=== PATIENT | male | born 1990 | race African-American/Black ===

== ENCOUNTER 2024-07-07 05:41 | Emergency (ER) | payer OTHER, SELFPAY ==
[2024-07-07 05:39] VITALS: BP 185/105; PULSE 95; RESP 15; TEMP 37.1; O2SAT 97
--- NOTE | 2024-07-07 05:44 | ED.GENADULT ---
HPI - General Adult General Chief complaint: Unspecified Stated complaint: unable to sleep x 3d; sore throat Time Seen by Provider: 07/07/24 05:44 History of Present Illness HPI narrative: 33-year-old male with a past medical history including hypertension and obstructive sleep apnea. Patient presents to the emergency department with complaint of sore throat and feeling like he is having difficulties going to sleep or he feels like he is gasping for breath in the middle the night, waking up startled and rolled and not getting a good night's sleep. He has had a physical recently and his family physician told him that he might do CPAP for his obstructive sleep apnea. Patient denies any symptoms at this time aside from a sore throat and feels like he got sick from a family friend that was sick at home. Denies any fever chills shortness of breath, chest pain, nausea, vomiting. Was otherwise in his normal state of health. Related Data Allergies Allergy/AdvReac Type Severity Reaction Status Date / Time No Known Allergies Allergy Verified 07/07/24 05:51 Review of Systems Review of Systems: As reviewed above in HPI Exam Narrative: GENERAL: Morbidly obese but not any distress HEAD: [Normocephalic, atraumatic.] EYES: [PERRLA and EOMI.] ENT: Nares clear, no rhinorrhea or epistaxis. Mucous membranes moist. Posterior oropharynx has some tonsillar edema but no exudates or posterior pharyngeal erythema. NECK: Supple. CHEST: [Clear to auscultation. No respiratory distress.] HEART: [Regular rate and rhythm]. No murmur heard. [Normal peripheral pulses.] ABDOMEN: [Soft, nondistended], [nontender], [No rigidity or guarding] EXTREMITIES: Normal range of motion. [No edema.] SKIN: Warm, dry, no rash. NEURO: [No focal deficits]. Alert and oriented [x3.] PSYCH: [Normal mood and affect.] Course Vital Signs Vital signs: Vital Signs Temperature 37.1 C 07/07/24 05:39 Pulse Rate 95 07/07/24 05:39 Respiratory Rate 15 07/07/24 05:39 Blood Pressure 185/105 H 07/07/24 05:39 Pulse Oximetry 97 07/07/24 05:39 Oxygen Delivery Room Air 07/07/24 05:39 Temperature 37.1 C 07/07/24 05:39 Pulse Rate 88 07/07/24 05:49 Respiratory Rate 15 07/07/24 05:39 Blood Pressure 185/105 H 07/07/24 05:39 Pulse Oximetry 97 07/07/24 05:39 Oxygen Delivery Room Air 07/07/24 05:39 Medical Decision Making MDM Narrative Medical decision making narrative: 33-year-old male with a history of obstructive sleep apnea hypertension presenting to the emergency depart with a sore throat and feeling like he is gasping for breath in the middle night when he tries to sleep. He has been getting poor night's rest and his noticed that he snores loudly and then becomes apneic prior to waking up startled. His body habitus and physical exam were consistent with morbid obesity likely causing obstructive sleep apnea and symptomatology but he has also had some sick contacts and some tonsillar enlargement without any exudates. Strep swabs and COVID swabs were obtained and he was instructed on management for sleep apnea and CPAP machine which is family physician is already referred him for. He has not acquired 1 at this time. Patient has no signs of an emergency at this time will be discharged home upon completion of his ER visit. Medical Records Medical records reviewed: Yes I reviewed the external patient's medical records. Vital Signs Vital Signs: Vital Signs Temperature 37.1 C 07/07/24 05:39 Pulse Rate 95 07/07/24 05:39 Respiratory Rate 15 07/07/24 05:39 Blood Pressure 185/105 H 07/07/24 05:39 Pulse Oximetry 97 07/07/24 05:39 Oxygen Delivery Room Air 07/07/24 05:39 Temperature 37.1 C 07/07/24 05:39 Pulse Rate 88 07/07/24 05:49 Respiratory Rate 15 07/07/24 05:39 Blood Pressure 185/105 H 07/07/24 05:39 Pulse Oximetry 97 07/07/24 05:39 Oxygen Delivery Room Air 07/07/24 05:39 Lab Data Lab results reviewed: Yes I reviewed the patient's lab results. Labs: Lab Results 07/07/24 Range/Units 05:51 Influenza A (RT-PCR) Pending Influenza B (RT-PCR) Pending RSV (RT-PCR) Pending SARS-CoV-2 RNA (RT-PCR) Pending Group A Strep (PCR) Detected A (Negative) Discharge Plan Discharge Clinical Impression: Obstructive sleep apnea, Acute sore throat, Strep throat Patient Disposition: Home Condition: Stable Instructions: Antibiotic Form Additional Instructions: You have strep throat and we will treat this with antibiotics. Your symptoms are consistent with obstructive sleep apnea likely secondary to obesity. He will need a CPAP machine to help with the symptoms of this. Follow-up with your primary care provider about getting this. Return with any emergencies. Patient Language: Argentine Prescriptions: New amoxicillin 500 mg capsule 500 mg PO Q12H Qty: 20 0RF Time of Disposition: 06:28
[2024-07-07 05:49] VITALS: PULSE 88
[2024-07-07 06:23] LABS: Strep Group A RT-PCR DETECTED (Negative)
[2024-07-07 06:38] LABS: Influenza A QL RT-PCR Negative (Negative); Influenza B QL RT-PCR Negative (Negative); RSV RNA, RT-PCR Negative (Negative); SARS-CoV-2 RNA PCR Negative (Negative)
[2024-07-07] MEDS: PENICILLIN V POTASSIUM 250 MG TABLET 500 MG PO (06:41)
== END 2024-07-07 06:45 | disposition home or self-care (01) ==
LOC: ANHED 06:49
PROVIDERS: Emergency Provider Student in an Organized Health Care Education/Training Program
DX: G47.33 Obstructive sleep apnea (adult) (pediatric) (principal); J02.0 Streptococcal pharyngitis; Z20.822 Contact with and (suspected) exposure to COVID-19; E66.01 Morbid (severe) obesity due to excess calories; Z68.42 Body mass index [BMI] 45.0-49.9, adult
CPT/HCPCS: 87637; 87651; 99283; A9270

== ENCOUNTER 2024-08-23 22:59 | Emergency (ER) | payer OTHER, SELFPAY ==
--- NOTE | ~2024-08-23 | CT_ITS ---
Non-contrast CT scan of the Abdomen and Pelvis Clinical indication: Pain, umbilical hernia Technique: 2.5 mm axial scans were obtained through the abdomen and pelvis without intravenous or or al contrast. Dose reduction technique was used on this scan by utilizing automated exposure control a nd iterative reconstruction technique. The dose-length product (DLP) was 2007.87 mGy-cm. Findings: Images through the lung bases reveal no abnormalities. There is no evidence of renal or ureteral calculi. The kidneys and the ureters are nondilated. The liver, spleen, pancreas, gallbladder, and adrenals appear normal. There is no aortic aneurysm. There is no evidence of bowel obstruction. Small fat-containing of focal hernia present with possible minimal inflammatory change in the hernia. Images through the pelvis were performed. There is no evidence of ascites or lymphadenopathy. Urinary bladder unremarkable. No pelvic mass seen. Impression: Small fat-containing umbilical hernia with possible minimal inflammatory change in the hernia. Correl ate for incarceration/strangulation. Reviewed, dictated and finalized at [facility]. Impression: Small fat-containing umbilical hernia with possible minimal inflammatory change in the hernia. Correlate for incarceration/strangulation.
[2024-08-23 23:01] VITALS: BP 174/113; PULSE 91; RESP 18; TEMP 36.8; O2SAT 98
[2024-08-24 01:59] VITALS: BP 175/89; PULSE 87; RESP 18; O2SAT 100
[2024-08-24 02:03] LABS: Hematocrit 50.7 % (42.0-52.0); Hemoglobin 16.1 g/dL (14.0-18.0); Immature Granulocyte Percent A 0.4 % (0-0.5); Lymphocytes Absolute Auto 2.80 K/mm3 (0.9-3.2); Mean Corpuscular HGB Conc 31.8 g/dl (32-36); Mean Corpuscular Hemoglobin 26.8 pg (26-34); Mean Corpuscular Volume 84.5 fl (80-100); Nucleated Red Blood Cells Absolute Auto 0.000 K/mm3 (0.0-0.012); Nucleated Red Blood Cells Perc 0.0 % (0.0-0.2); Platelet Count Result 247 k/mm3 (150-375); Red Blood Count 6.00 M/mm3 (4.6-6.20); White Blood Count 7.1 K/mm3 (4.5-10.0)
--- NOTE | 2024-08-24 02:26 | ED.ABDPAIN ---
HPI - Abdominal Pain General Chief Complaint: Abdominal Pain Stated Complaint: hernia in belly button Time Seen by Provider: 08/24/24 02:04 History of Present Illness HPI narrative: 34-year-old male with history of obesity presenting to the emergency depart with umbilical pain in the umbilical hernia intermittent for last 4 days. States that he occasionally gets pain in this area where at projects outward and he is not able to reduce it but it spontaneous reduces on its own occasionally. Has been going on intermittently for several months but worsening over last few days. No nausea, vomiting, constipation. Not any acute distress and his urged him to come to the hospital for evaluation. He is tolerating oral intake without any difficulty, no fever, chills, back pain, chest pain. No current abdominal pain and no current protruding hernia. Related Data Allergies Allergy/AdvReac Type Severity Reaction Status Date / Time No Known Allergies Allergy Verified 08/23/24 23:01 Review of Systems Review of Systems: As reviewed above in HPI Exam Narrative: GENERAL: Morbidly obese but not any acute distress. HEAD: [Normocephalic, atraumatic.] EYES: [PERRLA and EOMI.] ENT: Nares clear, no rhinorrhea or epistaxis. Mucous membranes moist. NECK: Supple. CHEST: [Clear to auscultation. No respiratory distress.] HEART: [Regular rate and rhythm]. No murmur heard. [Normal peripheral pulses.] ABDOMEN: Soft nondistended, nontender., no rigidity or guarding. Umbilical hernia is easily reducible with palpation, hernia defect in the abdominal wall is palpable without any overlying skin changes EXTREMITIES: Normal range of motion. [No edema.] SKIN: Warm, dry, no rash. NEURO: [No focal deficits]. Alert and oriented [x3.] PSYCH: [Normal mood and affect.] Course Vital Signs Vital signs: Vital Signs Temperature 36.8 C 08/23/24 23:01 Pulse Rate 91 08/23/24 23:01 Respiratory Rate 18 08/23/24 23:01 Blood Pressure 174/113 H 08/23/24 23:01 Pulse Oximetry 98 08/23/24 23:01 Oxygen Delivery Room Air 08/23/24 23:01 Temperature 36.8 C 08/23/24 23:01 Pulse Rate 87 08/24/24 02:56 Respiratory Rate 27 H 08/24/24 02:56 Blood Pressure 163/101 H 08/24/24 02:56 Pulse Oximetry 95 08/24/24 02:56 Oxygen Delivery Room Air 08/24/24 01:59 MDM - Abdominal Pain MDM Narrative Medical decision making narrative: 34-year-old male with history of obesity presenting to the emergency depart with umbilical pain in the umbilical hernia intermittent for last 4 days. States that he occasionally gets pain in this area where at projects outward and he is not able to reduce it but it spontaneous reduces on its own occasionally. Has been going on intermittently for several months but worsening over last few days. No nausea, vomiting, constipation. Not any acute distress and his urged him to come to the hospital for evaluation. He is tolerating oral intake without any difficulty, no fever, chills, back pain, chest pain. No current abdominal pain and no current protruding hernia. Exam of the abdominal region shows umbilical hernia which is is reducible with palpation and pressure, hernia defect in the abdominal wall is palpable without any overlying skin changes. Patient is mildly hypertensive but no signs or symptoms of hypertensive urgency or emergency at this time. Other vital signs are all normal. Given patient's intermittent pain for last few weeks as well as exam findings of hernia we discussed treatment evaluation options and patient would like to undergo imaging studies for further evaluation of the hernia contents. Laboratory studies and a CT scan without contrast were obtained. Given patient's easily reducible hernia without any signs of obstruction or clinical concern from his historical elements I believe he can be discharged home upon completion of workup with a general surgery referral and he was amenable to this plan. Workup underway. CT scan shows umbilical hernia without any bowel loops. Patient has any exam finding consistent with reducible umbilical hernia without strangulation or incarceration. He will follow-up with a general surgeon which we will refer him to. Patient is safe for discharge home at this time. Medical Records Attestation: I reviewed the patient's medical records. Lab Data Attestation: I reviewed the patient's lab results. 08/24/24 01:56 08/24/24 01:56 Labs: Lab Results 08/24/24 08/24/24 Range/Units 01:56 02:21 WBC 7.1 (4.5-10.0) K/mm3 RBC 6.00 (4.6-6.20) M/mm3 Hgb 16.1 (14.0-18.0) g/dL Hct 50.7 (42.0-52.0) % MCV 84.5 (80-100) fl MCH 26.8 (26-34) pg MCHC 31.8 L (32-36) g/dl RDW 15.2 H (11.5-14.5) % Plt Count 247 (150-375) k/mm3 MPV 10.1 (7.4-10.4) fl Immature Gran % (Auto) 0.4 (0-0.5) % Neut % (Auto) 47.3 (45.5-73.1) % Lymph % (Auto) 39.5 (18.3-44.2) % [place] % (Auto) 7.8 (2.6-8.5) % Eos % (Auto) 4.2 (0-4.4) % Baso % (Auto) 0.8 (0.2-1.2) % Lymph # (Auto) 2.80 (0.9-3.2) K/mm3 [place] # (Auto) 0.6 (0.1-0.6) K/mm3 Eos # (Auto) 0.3 (0-0.3) K/mm3 Baso # (Auto) 0.1 (0.0-0.1) K/mm3 Abs Immat Gran (auto) 0.03 (0.00-0.031) K/mm3 Absolute Neuts (auto) 3.3 (1.3-6.7) K/mm3 Absolute Nucleated RBC 0.000 (0.0-0.012) K/mm3 Nucleated RBC % 0.0 (0.0-0.2) % Sodium 140 (137-145) mmol/L Potassium 4.0 (3.4-5.0) mmol/L Chloride 105 (98-107) mmol/L Carbon Dioxide 27 (22-30) mmol/L Anion Gap 8 (4-12) mmol/L BUN 19 (9-20) mg/dL Creatinine 1.23 (0.7-1.3) mg/dL Estim Creat Clear Calc 130 ml/min Estimated GFR > 60 (59 - ) Glucose 155 H (65-110) mg/dL Calcium 9.2 (8.4-10.2) mg/dL Total Bilirubin 0.3 (0.2-1.3) mg/dL AST 29 (17-59) U/L ALT 28 (6-50) U/L Alkaline Phosphatase 72 (38-126) U/L Total Protein 7.8 (6.3-8.2) g/dL Albumin 4.0 (3.5-5.1) g/dL Lipase 383 H (23-300) U/L Urine Color Yellow (Yellow) Urine Appearance Clear (Clear) Urine pH 5.5 (5.0-9.0) Ur Specific [place] 1.032 (1.001-1.035) Urine Protein 2+ H (Negative) mg/dL Urine Glucose (UA) Negative (Negative) mg/dL Urine Ketones Trace H (Negative) mg/dL Ur Blood (Man) Negative (Negative) Urine Nitrate Negative (Negative) Urine Bilirubin Negative (Negative) Urine Urobilinogen 0.2 (<2.0) mg/dL Leukocyte Esterase Rfl 2+ H (Negative) TOM/UL Urine RBC 0-2 (0-2) /hpf Urine WBC 51-100 H (0-3) /hpf Ur Squamous Epith Cells None seen (Few) /hpf Urine Bacteria None seen /hpf Urine Casts 0-2 Imaging Data Attestation: I personally reviewed and interpreted this imaging study as follows: My impression: Impressions Abdomen/Pelvis CT 08/24/24 05:36 Impression: Small fat-containing umbilical hernia with possible minimal inflammatory change in the hernia. Correlate for incarceration/strangulation. Radiologist's impression: ITS Impressions Abdomen/Pelvis CT 08/24/24 05:36 Impression: Small fat-containing umbilical hernia with possible minimal inflammatory change in the hernia. Correlate for incarceration/strangulation. Discharge Plan Discharge Clinical Impression: Reducible umbilical hernia Patient Disposition: Home Condition: Stable Instructions: Antibiotic Form, Umbilical Hernia (ED), Umbilical Hernia Repair (DC) Additional Instructions: Your CT scan shows a small fat containing umbilical hernia which is easily reducible at bedside without any signs of strangulation or incarceration. This can be treated with General surgery on outpatient basis which will refer you to. Your laboratory studies are reassuring and no signs of urgent or emergent concerns today. Follow-up with surgery and return with any concerns such as intractable pain, inability to defecate, nauseousness and persistent vomiting or any other issues. Patient Language: Mohawk Prescriptions: No Action amoxicillin 500 mg capsule 500 mg PO Q12H Qty: 20 0RF Follow-up/Referrals: Jesus Manuel Dye MD [Physician] - 1 Week (Umbilical hernia) PHYSICIAN,[employer] [Primary Care Provider] - Time of Disposition: 05:45
[2024-08-24 02:27] LABS: Alanine Aminotransferase 28 U/L (6-50); Albumin Level 4.0 g/dL (3.5-5.1); Alkaline Phosphatase 72 U/L (38-126); Anion Gap 8 mmol/L (4-12); Aspartate Amino Transferase 29 U/L (17-59); Bilirubin,Total 0.3 mg/dL (0.2-1.3); Blood Urea Nitrogen 19 mg/dL (9-20); Calcium 9.2 mg/dL (8.4-10.2); Carbon Dioxide 27 mmol/L (22-30); Chloride 105 mmol/L (98-107); Estimated CRCL calculation 130 ml/min; Estimated Glomerular Filt Rate > 60; Glucose 155 mg/dL (65-110); Lipase 383 U/L (23-300); Potassium 4.0 mmol/L (3.4-5.0); Sodium 140 mmol/L (137-145); Total Protein 7.8 g/dL (6.3-8.2)
[2024-08-24 02:31] LABS: Add Urine Microscopic? YES; Appearance Urine Clear (Clear); Glucose Urine UA Negative (Negative); Leukocyte Esterase Ur 2+ LEU/UL (Negative); Nitrate Urine Negative (Negative); Non Pathogenic Casts 0-2; Specific Grav Ur 1.032 (1.001-1.035)
[2024-08-24 02:56] VITALS: BP 163/101; PULSE 87; RESP 27; O2SAT 95
[2024-08-24 05:53] VITALS: BP 157/92; PULSE 85; RESP 23; O2SAT 99
== END 2024-08-24 05:54 | disposition home or self-care (01) ==
PROVIDERS: Emergency Provider Student in an Organized Health Care Education/Training Program
DX: K42.9 Umbilical hernia without obstruction or gangrene (principal)
CPT/HCPCS: 36415; 74176; 80053; 81001; 83690; 85025; 87086; 99284

== ENCOUNTER 2024-10-25 07:58 | Outpatient (CLI) | payer OTHER, SELFPAY ==
--- NOTE | 2024-11-16 11:07 | WPDHOMESLEEP ---
Sleep Study - Home Unattended Date of Study: 10/25/24 Ordering Provider: Claire Marquez, FUNERAL SERVICE MANAGER Interpreting Provider: Rianna Brewer MD Home Sleep Study Type: Watch PAT Height: 1.89 m Weight: 169.19 kg Body Mass Index: 47.2 Neck Circumference (inches): 21.5 [place]: 12 Reason for Sleep Study Hypersomnolence Sleep History Pan Snow Jr is a 34-year-old male who wakes with a dry mouth in the morning. His sleep questionnaire indicates that he does not stop breathing at night, he does not choke or gasp at night and he does not have difficulty breathing when he is on his back. He does not awaken with a morning headache. He does not have heartburn at night and he does not awaken at night to go to the bathroom. He has never had a prior sleep study. He does not have any cardiac comorbidities. He has difficulty returning to sleep if he awakens at night. He has difficulty falling asleep and waking up too early. He does not use sedatives and he does not feel anxious about his sleep. He is tired and sleepy during the day, he does not feel refreshed on waking and he does have an urge to fall asleep during the day. He does not have drowsy driving. He does not have complaints of grinding his teeth at night. He does not kick his legs excessively nor does he have uncomfortable feelings in his legs at night. He does not act out his dreams, he does not sleep walk. There is no family history of sleep disorder breathing. Normal bedtime is 11:00 p.m. taking 1/2 hour to fall asleep, spending 6 hours in bed, 6 hours sleeping. He keeps the same schedule on weekends. He feels more rested on days when he does not work. He does not take planned naps. Habits: Tobacco : no Caffeine : no Alcohol : no Recreational substances : no PMFSH Past Medical History Medical History Obstructive sleep apnea Morbid obesity Hypertension Surgical History Surgical History History of hernia repair Medications Home Medications ?Medication ?Instructions ?Recorded ?Confirmed ?Type amoxicillin 500 mg capsule 500 mg PO Q12H #20 caps 07/07/24 Rx Medications: losartan 25 mg a day Sleep Procedure The sleep study was completed using WatchPAT a technically adequate device with seven channels: peripheral arterial tone, actigraphy, body position, snore, respiratory movement, pulse oximetry, sleep staging, and heart rate. Prior to using the device, the patient received verbal and written instructions for its application and was provided with the help desk phone number for additional telephonic instruction with 24-hour availability of qualified personnel to answer questions. Sleep Architecture The total recording time is 6 hrs, 20 min. The total sleep time is 5 hrs, 45 min. Sleep latency is 17 minutes. REM latency could not be determines due to technical issues. The patient had 6 episodes of waking. Sleep architecture could not be determined. The patient spent 45.6% of total sleep time in the supine position. Sleep efficiency was 91%. Respiratory Analysis The overall AHI (pAHI 3%:) is 51.5. The central AHI is 9.1. The AHI was not able to be determined in REM vs NREM sleep. The AHI was 69.0 in Supine and 37.1 in Non-supine sleep. Percent of Alphonso Nicholas respirations is 0%. Oximetry Data The oxygen desaturation index (NYA 4%:) is 35.9. The mean saturation is 93%, and the lowest saturation is 81%. Time spent with saturation < 88% is 7.0 minutes. Snoring Profile Snoring average intensity is 41 dB. The patient snored above 45 decibels for 10.4 minutes, 3.0% of sleep time. Cardiac Profile The average pulse rate is 64 beats per minutes. The lowest pulse rate is 44 bpm. The highest pulse rate is 107 beats per minute. Cardiac rhythm analysis in sleep does not show atrial fibrillation. Assessment and Plan Assessment and Plan (1) Obstructive sleep apnea: Code(s): G47.33 - Obstructive sleep apnea (adult) (pediatric) Status: Acute Assessment and Plan: This home sleep test using WatchPat on 10/25/2024 shows severe obstructive sleep apnea, Overall apnea-hypopnea index 51.5 (p>3%) with desaturation 81%, significant central apneas with a central apnea-hypopnea index of 9.1 (normal is = or < 5 events per hour, 7 minutes spent below 88%), and loud snoring. Due to technical issues it was not possible to determine REM versus non-REM apnea-hypopnea index which does not significantly impact the outcome as the patient has severe sleep apnea and hypoxemia that will require an in-lab CPAP titration. Patient should not nap on the day of the study. He should have adequate sedative available for use, if needed, consider Ambien 5 or 10 mg, another alternative would is Lunesta 2 or 3 mg. Due to his elevated central apnea index of 9.1, patient should have an echocardiogram to determine if he has decreased LV function. Increased central apneas greater than 5 per hour are seen in patients with stroke, decreased LV function, alcohol and opioid use. Sometimes increased central apneas can occur with out any predisposing factors. BMI is 47. Weight management is advised. Clinical data suggests that weight loss of 10% can reduce the severity of respiratory events and snoring and improve AHI by as much as 25%. (2) Central sleep apnea: Code(s): G47.31 - Primary central sleep apnea Status: Acute Data The data obtained during this sleep study is adequate for interpretation. Certification This sleep study has been reviewed by a board certified sleep medicine physician.
[2024-11-28 12:10] VITALS: BMI 47.2
== END 2024-11-12 12:43 | disposition home or self-care (01) ==
PROVIDERS: PCP Nurse Practitioner Family; Visit Provider Nurse Practitioner Family
DX: G47.33 Obstructive sleep apnea (adult) (pediatric) (principal); I10 Essential (primary) hypertension; K46.9 Unspecified abdominal hernia without obstruction or gangrene; Z68.43 Body mass index [BMI] 50.0-59.9, adult; G47.31 Primary central sleep apnea
CPT/HCPCS: 95800